=== PATIENT | female | born 1980 | race Caucasian/White ===

== ENCOUNTER 2019-08-19 11:01 | Outpatient (CLI) | payer BC ==
--- NOTE | 2019-08-19 11:50 | ULT ---
EXAM: US Abdominal CLINICAL HISTORY: Epigastric pain. COMPARISON: None. FINDINGS: Pancreas: The head and body the pancreas have a normal echotexture. IVC: Visualized IVC has a normal caliber. Aorta: Visualized aorta has a normal caliber. Liver:Normal hepatic parenchymal echotexture. No hepatic masses or intrahepatic biliary dilatation. T he contour of the hepatic margin is maintained. Right hepatic lobe measures 17.5 cm Gallbladder: No sonographic evidence of cholelithiasis, gallbladder wall thickening or pericholecysti c fluid. Miller's sign:Negative CBD: 0.4 cm common bile duct diameter Portal vein: Patent. Appropriate directional flow. Right kidney: Normal cortical echotexture. No hydronephrosis. The right renal pelvis is prominent. T he proximal right ureter may be prominent. Right kidney measuring 3.6 x 9.3 x 4.6 cm in length. Left kidney: Normal cortical echotexture. No hydronephrosis . Left kidney measuring 3.8 x 10.5 0.7 cm in length Spleen: Normal echotexture, measuring 11.7 cm. There are prominent vessels in the splenic hilum. IMPRESSION: 1. Prominent also the splenic hilum. Correlate for splenic varices. 2. Prominent right renal pelvis and proximal right ureter. 3. Better interrogation with abdomen and pelvic CT is recommended CODE T
== END 2019-08-19 11:02 | disposition home or self-care (01) ==
LOC: SCSULT 11:01
PROVIDERS: ATTEND Internal Medicine Gastroenterology
DX: R10.13 Epigastric pain (principal); D73.89 Other diseases of spleen; N28.89 Other specified disorders of kidney and ureter
CPT/HCPCS: 93975

== ENCOUNTER 2020-07-09 10:21 | Outpatient (CLI) | payer OTHER | END 2020-07-09 10:22 | disposition home or self-care (01) | LOC: BICMRI 10:21 | PROVIDERS: ATTEND Obstetrics & Gynecology | DX: N60.19 Diffuse cystic mastopathy of unspecified breast (principal); Z80.3 Family history of malignant neoplasm of breast | CPT/HCPCS: 82565; A9577; C8908 ==